=== PATIENT | male | born 1950 | race Caucasian/White ===

== ENCOUNTER 2020-08-31 09:01 | Day surgery (SDC) | payer MEDICARE, OTHER, SELFPAY ==
--- NOTE | 2020-08-24 14:25 | NURSING ---
pt reports he received his second Moderna Vaccine on 07/23/20.
[2020-08-31] VITALS (7 sets, daily range): BP systolic 120–171; BP diastolic 63–107; PULSE 55–85; RESP 16–18; TEMP 36.1–36.5; O2SAT 95–98; BMI 29.8
--- NOTE | 2020-08-31 09:10 | RAD_ITS ---
INDICATION: preop EXAMINATION/TECHNIQUE: X-RAY - XR Abdomen 1 View COMPARISON: None FINDINGS: BOWEL GAS PATTERN: Non-obstructive. No bowel or stomach distention. FREE AIR: Not assessed on a single supine view. ORGANOMEGALY: Not seen. CALCIFICATIONS: 8 mm stone projects over the mid left ureter. Few other calcifications in the pelvis may be phleboliths versus bladder stones. LOWER CHEST: No acute pathology. BONES AND SOFT TISSUES: No acute pathology. RAD/Abdomen Single View IMPRESSION: 8 mm stone projects over the mid left ureter. Few other calcifications in the pelvis may be phleboliths versus bladder stones. Electronically Signed: Tam Capellan MD at 23:08 EDT Tel , Service support ,
[2020-08-31] MEDS: Lactated Ringers 1,000 ML 100 ML IV (10:14)
--- NOTE | 2020-08-31 10:57 | PCM.HP.STD ---
Problem List (1) Left ureteral calculus Status: Acute History of Present Illness Date of Admission: 08/31/20 Chief Complaint: Left ureteral calculi The patient is a 70 year old male who presents with a stone in the mid ureter on the left side plan to proceed with shockwave lithotripsy possible stent Past Medical History Allergies No Known Allergies Allergy (Verified 08/24/20 13:46) Home Medications: Ambulatory Orders Medication Instructions Recorded Aspirin [Aspirin EC] 81 mg PO QHS 08/24/20 Atorvastatin Calcium [Lipitor] 40 mg PO QHS 08/24/20 Cholecalciferol (Vitamin D3) 2,000 unit PO QHS 08/24/20 [Thera-D] Lisinopril/Hydrochlorothiazide 1 each PO QHS 08/24/20 [Lisinopril-Hctz 10-12.5 mg Tab] Multivit-Min/FA/Lycopen/Lutein 1 each PO QHS 08/24/20 [Centrum Silver Men Tablet] [place]-3 Fatty Acids/Fish Oil [Fish 1 each PO QHS 08/24/20 Oil 1,000 mg Capsule] Tadalafil 20 mg PO . 08/24/20 Ubidecarenone [Coq10] 400 mg PO QHS 08/24/20 Surgical History: no surgical history Smoking Status: Former smoker Review of Systems Constitutional: Denies: Chills, Fever, Weight Change HEENT: Denies: Head Aches, Sinus Congestion, Sinus Drainage Cardiovascular: Denies: Chest Pain, Palpitations Respiratory: Denies: Cough, Shortness of breath at rest, Sputum production Gastrointestinal: Denies: Abdominal Pain, Nausea, Vomiting Genitourinary: Denies: Dysuria Musculoskeletal: Denies: Joint Pain, Joint Tenderness Skin: Denies: Rash, Wounds Neurological: Denies: Numbness, Tingling, Focal weakness Psychiatric: Denies: Anxiety, Depression, Homicidal Ideations, Suicidal Ideations Hematologic/ Lymphatic: Denies: Easy Bruising, Easy Bleeding VTE Information - Inpt Only VTE Present on Admission: No - Physical Exam Vitals/I&O's: Vital Signs Temp Pulse Resp BP Pulse Ox 97.5 F L 85 18 127/63 H 98 08/31/20 09:57 08/31/20 09:57 08/31/20 09:57 08/31/20 09:57 08/31/20 09:57 Oxygen Delivery Method Room Air Weight: 91.6 kg Body Mass Index (BMI) 29.8 General: Alert, Oriented x3, Cooperative HEENT: Atraumatic, PERRLA, EOMI, Normocephalic Neck: Supple, No JVD, Negative Carotid Bruits Lungs: Clear to auscultation, Normal air movement Cardiovascular: Regular rate, No murmurs Abdomen: Bowel Sounds Present, Soft, Non Tender Extremities: No edema, Capillary Refill Less than 3 Seconds Skin: No rashes, No breakdown Musculoskeletal: No Tenderness to Palpation of Joints or Extremities Neurological: Cranial nerves II-XII grossly intact Psych/Mental Status: Normal Affect, Appropriate Current Medications Cefazolin Sodium 2 gm/ Sodium (Chloride) 110 mls @ 150 mls/hr IV PREOP ONE Stop: 08/31/20 11:53 Lactated Ringer's () 1,000 mls @ 100 mls/hr IV .Q10H JUANITA Last Admin: 08/31/20 10:14 Dose: 100 mls/hr Documented by: Assessment/Plan All Active Problems Left ureteral calculus (Acute) Plan to proceed with left ESWL possible stent.
--- NOTE | 2020-08-31 11:00 | DCINST_ITS ---
Discharge Diet: Light diet - advance as tolerated Discharge Activity: Return to Normal Activity Allergies/Adverse Reactions: Allergies No Known Allergies Allergy (Verified 08/24/20 13:46) Medications to take at Discharge Aspirin [Aspirin EC] 81 mg PO QHS 08/24/20 Atorvastatin Calcium [Lipitor] 40 mg PO QHS 08/24/20 Cholecalciferol (Vitamin D3) [Thera-D] 2,000 unit PO QHS 08/24/20 Lisinopril/Hydrochlorothiazide [Lisinopril-Hctz 10-12.5 mg Tab] 1 each PO QHS 08/24/20 Multivit-Min/FA/Lycopen/Lutein [Centrum Silver Men Tablet] 1 each PO QHS 08/24/20 [place]-3 Fatty Acids/Fish Oil [Fish Oil 1,000 mg Capsule] 1 each PO QHS 08/24/20 Tadalafil 20 mg PO . 08/24/20 Ubidecarenone [Coq10] 400 mg PO QHS 08/24/20 Orders to be completed after discharge: Abdomen Single View [RAD] Time Frame: 08/31/20, Facility: [facility], Location: [facility] Primary Care Physician: Jose Pena MD [Primary Care Provider] - Test Results: Test results from this visit will be discussed in further detail at your follow- up appointment, if applicable. Please Follow Up With: Ken Cox MD When: please call to make an appointment.
[2020-08-31] MEDS: Cefazolin 2 GM in 0.9% Normal Saline 100 ML IV (11:05)
--- NOTE | 2020-08-31 11:51 | PCM.OPRPT ---
Problem List (1) Left ureteral calculus Status: Acute Report of Operation Date of Procedure: 08/31/20 Pre-Operative Diagnosis: Left ureteral calculi Post-Operative Diagnosis: same Surgery/Procedure Performed:: cystoscopy left stent placement left extracorporeal shockwave lithotripsy Description of Surgical Findings:: Patient presents to the hospital for treatment of a kidney stone with shockwave lithotripsy. In the preoperative area and x-ray was done to confirm the location of the stone. The x-ray was reviewed and the stone location was reviewed. In the preoperative setting I spoke with the patient regarding the treatment of the stone how the treatment would be conducted and the expectations after surgery. The patient understands there is a risk of bleeding and infection. Also discussed the very rare risk of hematoma or damage to the kidney. We also discussed the risk that the shockwave machine will fail to break the stone adequately and that the patient may need other surgical procedures. We also discussed the possibility that the patient may need a stent after the procedure. After reviewing the procedure with the patient, the patient is signed the consent form all the patient's questions were addressed and was taken back to the operating room for treatment of a kidney stone. Patient was taken back to the operating room, patient was identified by the nursing staff, we identified the side of the treatment and the patient side of treatment had been marked by my initials. The patient underwent general anesthetic and was placed supine on the lithotripter table. We then used fluoroscopy to identify the stone on the left side. We then positioned the patient under the lithotripter and we used triangulation technique to identify the location of the stone and then we made sure that the stone was engaged in the F2 focal point of F2 Donier lithoprior machine. The urethra and genitals were prepped and draped in usual sterile fashion. Using a 21 [place] rigid cystourethroscope the entire length of the urethra was normal then went into the bladder. Identified the trigone the left and right ureteral orifice. I then cannulated the left orifice and advanced a wire up into the kidney. I then backloaded a 5 [place] open ended catheter over the wire and injected contrast to delineate the anatomy. After the retrograde was performed I then used fluoroscopic images and guidance to advanced a wire up into the kidney and over the 0.038 glidewire I advanced a 6 [place] by 26 cm double pigtail stent. I then pulled the 0.038 Glidewire off and the stent coiled in the kidney bladder good position. The bladder was then drained. We confirmed the position of the stent by fluoroscopy.Once the patient was positioned appropriately and the stone was identified and placed in the F2 focal point of the lithotripter machine we then proceeded with shockwave lithotripsy. In the beginning the shockwave was delivered at a rate of 120 shocks per minute, we monitor the EKG for any ectopy. The power was slowly increased to 5 kV and subsequently at the 7 kV. We then proceeded with the treatment we move the therapy had around during the treatment to make sure the stone stayed in the F2 focal point during the entire treatment. Once the stone had broken up completely then we stopped the treatment a total of about 4000 shockwaves were delivered to the stone under fluoroscopic guidance. At this point the patient's anesthetic was reversed patient was extubated and taken back to the PACU in stable condition. The patient was given instructions to call the office to make an a follow-up appointment. Type of Anesthesia:: General Drains: stent left - Admit VTE Documentation VTE Present on Admission: No VTE Mechan Device Prophylaxis: SCD's
[2020-08-31] MEDS: Ondansetron 4 MG/2 ML Vial IV (12:38)
[2020-08-31] MEDS: Ketorolac 15 MG/ML Vial IV (12:38)
== END 2020-08-31 14:11 | disposition home or self-care (01) ==
LOC: SDC 09:03 → AC 09:05
PROVIDERS: PCP Family Medicine; Referring Provider Urology; Visit Provider Urology
PROC: (CPT 50590; principal; 2020-08-31 11:00)
DX: N20.1 Calculus of ureter (principal); I10 Essential (primary) hypertension; E78.00 Pure hypercholesterolemia, unspecified; Z79.82 Long term (current) use of aspirin; Z79.899 Other long term (current) drug therapy; Z87.442 Personal history of urinary calculi; Z87.891 Personal history of nicotine dependence; Z95.1 Presence of aortocoronary bypass graft
CPT/HCPCS: 00873; 50590; 52332; 74018; J7120; C1769; C2617; J2405

== ENCOUNTER → 2020-09-03 14:21 | Outpatient (CLI) | payer MEDICARE, OTHER, SELFPAY ==
[2020-08-31 09:57] VITALS: BMI 29.8
--- NOTE | 2020-09-03 14:26 | RAD_ITS ---
STUDY: X-RAY - ABDOMEN/PELVIS REASON FOR EXAM: Male, 70 years old. post op after ESWL TECHNIQUE: Single AP view of the abdomen / pelvis. COMPARISON: None. FINDINGS: Normal visualized lung bases. There is an unremarkable bowel gas pattern. Left ureteral stent. 6 mm calcific opacity adjacent to the stent at the level of L4/L5 worrisome for ureteral stone. Normal soft tissue structures. Normal visualized osseous structures. RAD/Abdomen Single View IMPRESSION: Left ureteral stent with suspected 6 mm left ureteral stone in the mid left ureter. Electronically Signed: Tucker Weiner MD at 13:13 EDT Tel , Service support ,
== END ==
PROVIDERS: PCP Family Medicine; Referring Provider Urology; Visit Provider Urology
DX: Z98.890 Other specified postprocedural states (principal)
CPT/HCPCS: 74018

== ENCOUNTER 2020-09-05 12:11 | Day surgery (SDC) | payer MEDICARE, OTHER, SELFPAY ==
[2020-08-31 09:57] VITALS: BMI 29.8
[2020-09-05] VITALS (7 sets, daily range): BP systolic 129–155; BP diastolic 60–72; PULSE 55–67; RESP 16; TEMP 36.2–36.9; O2SAT 16–100; BMI 29.6
[2020-09-05] MEDS: Lactated Ringers 1,000 ML 100 ML IV (12:53)
--- NOTE | 2020-09-05 14:19 | PCM.HP.STD ---
HPI - General General Date of Admission: 08/31/20 HPI Narrative YADIRA AVILES, is a 70 M who presentsWho is status post treatment of the left ureteral calculi with shockwave lithotripsy. I saw him in the postoperative period in my office with an x-ray and he still has a large fragment in the ureter so we will bring him back to surgery for ureteroscopy and laser of a large fragment that did not break with shockwave lithotripsy he understands he may need another stent. [facility] Medical History (Updated 09/04/20 @ 13:07 by Katy Henriquez) Heartburn History of tinnitus Hx of cardiovascular stress test (~08/25/18) Hx of echocardiogram (~2011) Hx of renal calculi Hypertension Injury of head and neck Kidney stones Shortness of breath on exertion Home Medications aspirin 81 mg PO QHS 08/24/20 [History Last Taken 09/02/20] atorvastatin 40 mg PO QHS 08/24/20 [History Last Taken Unknown] cholecalciferol (vitamin D3) 2,000 unit PO QHS 08/24/20 [History Last Taken Unknown] coenzyme Q10 400 mg PO QHS 08/24/20 [History Last Taken Unknown] lisinopril-hydrochlorothiazide 1 each PO QHS 08/24/20 [History Last Taken Unknown] wdgnunud-qdt-ZC-lycopen-lutein 1 each PO QHS 08/24/20 [History Last Taken Unknown] omega-3 fatty acids-fish oil 1 each PO QHS 08/24/20 [History Last Taken Unknown] tadalafil (pulm. hypertension) 20 mg PO . 08/24/20 [History Last Taken Unknown] hydrocodone-acetaminophen 1 tablet PO Q4H PRN PRN 7 Days #14 tab 08/31/20 [Rx Last Taken Unknown] oxybutynin chloride 10 mg PO DAILY 09/04/20 [History Last Taken Unknown] cephalexin [Keflex] 750 mg PO TID #15 cap 09/05/20 [Rx Last Taken Unknown] ibuprofen 600 mg PO Q6H PRN #20 tab 09/05/20 [Rx Last Taken Unknown] Allergy/AdvReac Type Severity Reaction Status Date / Time No Known Allergies Allergy Verified 09/05/20 12:44 Surgical History (Updated 09/04/20 @ 13:00 by Katy Henriquez) Hx of CABG (~06/15/12) Hx of cardiac cath (~06/15/12) Hx of carotid angioplasty Hx of lithotripsy (~08/31/20) Social History Smoking Status: Former smoker Vital Signs Vital Signs Vital Signs: 09/05/20 12:46 Temperature 98.5 F Temperature Source Temporal Pulse Rate 65 Respiratory Rate 16 Respiratory Pattern Normal Blood Pressure 152/68 H Blood Pressure Mean 96 Blood Pressure Source Monitor Blood Pressure Position Semi-Fowlers Blood Pressure Location Right Arm Pulse Ox 98 Oxygen Delivery Method Room Air Physical Exam Const alert and oriented x3 General Appearance: cooperative HEENT normocephalic, head/scalp atraumatic, EAC's normal and TM's normal bilaterally Eyes PERRL and EOMs intact bilaterally Pupil: sluggish Neck no lymphadenopathy, supple and no JVD General: trachea midline Lymph Lymphatic: no lymphadenopathy noted, lymphedema and lymphadenopathy Resp normal respiratory effort, normal air movement and clear to auscultation bilaterally Cardio regular rate, regular rhythm and peripheral pulses 2+ throughout GI soft to palpation, non-tender and non-distended Extremity normal capillary refill and no clubbing, cyanosis or edema General Extremity: no tenderness to palpation of joints or extremities Skin no rashes or lesions noted General Skin Exam: turgor normal Lesions: no lesions Rashes: no rashes Neuro CN's II-XII intact bilaterally Speech: speech normal Motor Exam: strength 5/5 throughout; Negative for general weakness Psych thought process normal, cooperative and affect normal Appearance: appropriate Assessment & Plan Assessment/Plan (1) Left ureteral calculus: Status: Acute Code(s): N20.1 - Calculus of ureter Plan: None plan to proceed with second stage surgery stage related to the prior surgery with left ureteroscopy laser of a stone that did not break with shockwave lithotripsy and possible left stent placement.
--- NOTE | 2020-09-05 14:20 | PCM.DC ---
Discharge Instructions Outpatient Procedure Procedure: Urology Diet Discharge Diet: No restrictions Activity Discharge Activity: May not drive while taking narcotic pain medications. (for 3 days.) May shower in (days): 1 Dressing / Incision Call your doctor if you observe: Fever of 101 or Higher, Numbness or Tingling, Shortness of breath, Dizziness, Calf discomfort and Uncontrolled pain Follow Up Care Please Follow Up With: Ken Cox MD When: Call [phone] for an appointment Test Results: Test results from this visit will be discussed in further detail at your follow-up appointment, if applicable. Discharge Plan Admission Attending Provider: Ken Cox Primary Care Provider: Jose Pena Instructions Patient Instructions: ED Kidney Stone, Passed Discharge Orders/Prescriptions Prescriptions: New cephalexin [Keflex] 750 mg capsule 750 mg PO TID Qty: 15 RF: 0 ibuprofen 600 mg tablet 600 mg PO Q6H PRN (Reason: pain) Qty: 20 RF: 0 No Action atorvastatin 40 MG tablet 40 mg PO QHS RF: 0 aspirin 81 MG tablet,delayed release (DR/EC) 81 mg PO QHS RF: 0 lisinopril-hydrochlorothiazide 1 EACH tablet 1 each PO QHS RF: 0 omega-3 fatty acids-fish oil 1 EACH capsule 1 each PO QHS RF: 0 cholecalciferol (vitamin D3) 50 MCG tablet 2,000 unit PO QHS RF: 0 hqrnyjcz-ube-JO-lycopen-lutein 1 EACH tablet 1 each PO QHS RF: 0 coenzyme Q10 50 MG tablet,chewable 400 mg PO QHS RF: 0 tadalafil (pulm. hypertension) 20 MG tablet 20 mg PO . RF: 0 hydrocodone-acetaminophen 1 TABLET tablet 1 tablet PO Q4H PRN PRN (Reason: Pain) 7 Days Qty: 14 RF: 0 oxybutynin chloride 10 mg Tablet Extended Release 24hr 10 mg PO DAILY RF: 0 Referrals: Jose Pena MD [Primary Care Provider] - Disposition Discharge Orders: Discharge Patient (Routine); Ordered 09/05/20 Ordered By: Dr. Ken Cox
[2020-09-05] MEDS: Cefazolin 2 GM in 0.9% Normal Saline 100 ML IV (14:39)
[2020-09-05] MEDS: Lubricating Jelly 60 GM Tube 30 GM TOPICAL (14:52)
--- NOTE | 2020-09-05 15:13 | PCM.OPRPT ---
Problems Associated Problem List Diagnoses (1) Left ureteral calculus: Report of Operation Date of Procedure: 09/05/20 Pre-Operative Diagnosis: Status post left ESWL well for left ureteral calculus Post-Operative Diagnosis: Same Surgery/Procedure Performed:: Stage related procedure, left ureteroscopy laser lithotripsy of stone and ureter, left retrograde pyelogram and left stent placement. Description of Surgical Findings:: Surgeon Dr. Cox Patient was taken back to the operating room after smooth induction of general anesthesia the urethra penis were prepped and draped in usual sterile fashion, I grabbed the string on the existing stent pulled out the meatus and put a wire through the stent and then over the wire went in with a flexible ureteroscope I was able to go up to the stone which had been previously treated the area was severely inflamed and the stone was stuck in the ureter there was a small puncture in the side of the ureter as well, I then used a 200 ?m laser fiber and laser the stone little tiny pieces after successful lasering of the stone all the pieces floated up into the kidney other little tiny fragments were all lasered a little tiny pieces. But because of the severe inflammation along the ureter and I was also small puncture defect from the stone itself decided that a stent would be necessary to allow this to heal completely. I backloaded down the ureter performed a retrograde pyelogram and then place a stent on the left side. The stent coiled in the kidney bladder good position. The bladder was drained patient anesthetic was reversed to take back to PACU good condition. Type of Anesthesia: General Anesthesiologist: Jassi Regan Drains: 6 x 26 cm stent Complications None Admit VTE Documentation VTE Present on Admission: No VTE Mechan Device Prophylaxis: SCD's
[2020-09-05] MEDS: Ketorolac 15 MG/ML Vial IV (16:31)
== END 2020-09-05 17:15 | disposition home or self-care (01) ==
LOC: SDC 12:14 → AC 12:24
PROVIDERS: PCP Family Medicine; Referring Provider Urology; Visit Provider Urology
PROC: 0TJ98ZZ Inspection of Ureter, Via Natural or Artificial Opening Endoscopic (ICD-10-PCS; CPT 52352; principal; 2020-09-05 14:20)
DX: N20.1 Calculus of ureter (principal); I10 Essential (primary) hypertension; Z79.82 Long term (current) use of aspirin; Z79.899 Other long term (current) drug therapy; Z87.891 Personal history of nicotine dependence; Z87.442 Personal history of urinary calculi; Z95.1 Presence of aortocoronary bypass graft; Z98.890 Other specified postprocedural states
CPT/HCPCS: 00918; 52356; 76000; J7120; C1769; C2617; J2405

== ENCOUNTER → 2021-11-05 | Outpatient (CLI) | payer MEDICARE, OTHER, SELFPAY ==
--- NOTE | 2021-11-05 15:06 | RAD_ITS ---
EXAM: XR ABDOMEN, 1 VIEW CLINICAL INDICATION: BENIGN PROSTATIC HYPERPLASIA TECHNIQUE: Frontal supine view of the abdomen/pelvis. This report was created using Nugg-it report generation technology. COMPARISON: 09/03/2020 FINDINGS: LOWER THORAX: No acute pathology. GASTROINTESTINAL TRACT: Unremarkable. Non-obstructive. No bowel or stomach distention. ORGANS: Unremarkable as visualized. No organomegaly. No abnormal calcifications. BONES/JOINTS: No acute pathology. SOFT TISSUES: No acute pathology. RAD/Abdomen Single View IMPRESSION: Non-obstructive bowel gas pattern. Electronically Signed: Davide Stephen MD at 2:35 EDT ,
== END | disposition home or self-care (01) ==
LOC: RAD 15:02
PROVIDERS: PCP Family Medicine; Referring Provider Urology; Visit Provider Urology
DX: N40.1 Benign prostatic hyperplasia with lower urinary tract symptoms (principal); N20.0 Calculus of kidney
CPT/HCPCS: 74018

== ENCOUNTER → 2023-05-06 | Outpatient (CLI) | payer OTHER, SELFPAY ==
--- NOTE | 2023-05-06 16:07 | CT_ITS ---
INDICATION: MASS EXAMINATION: CT NECK WITH CONTRAST - CT Soft Tissue Neck W/ Contrast Injection TECHNIQUE: Helically acquired images were obtained of the neck following IV contrast. A radiation dose optimization technique was used for this scan. IV Contrast dosage and agent: 75 cc of Isovue-370. RADIATION DOSAGE (If Supplied By Facility): CTDIvol = ( 18.41 ) mGy, DLP = ( 588.82 ) mGycm COMPARISON: No relevant prior comparison study available FINDINGS: NASOPHARYNX: Unremarkable. SUPRAHYOID NECK: Unremarkable oropharynx, oral cavity, parapharyngeal space, and retropharyngeal space. INFRAHYOID NECK: Unremarkable larynx, hypopharynx, and supraglottis. The left piriform sinus ovary is not visualized. No definite mass is seen. THYROID: No focal lesions. SALIVARY GLANDS: Unremarkable. LYMPH NODES: Few subcentimeter nodes in the carotid spaces bilaterally. No evidence of adenopathy. VASCULAR STRUCTURES: Scattered atherosclerotic calcifications in the distal left common and proximal left internal carotid arteries without significant stenosis. VISUALIZED PORTIONS OF THE ORBITS, PARANASAL SINUSES, MASTOID AIR CELLS AND SKULL BASE: Unremarkable. BONES: Degenerative changes in the lower cervical spine. THORACIC INLET: Clear lung apices. CT/Soft Tissue Neck WITH Contrast IMPRESSION: 1. No mass is seen. 2. Essentially unremarkable airway as described above. Electronically Signed: Ulices Hutchison MD at 15:14 EST ,
[2023-05-06 16:35] LABS: CREATININE FINGERSTICK 1.2 mg/dL (0.70-1.30)
== END | disposition home or self-care (01) ==
PROVIDERS: PCP Family Medicine
DX: R22.1 Localized swelling, mass and lump, neck (principal); R22.2 Localized swelling, mass and lump, trunk
CPT/HCPCS: 70491; Q9967

== ENCOUNTER → 2024-12-02 | Outpatient (CLI) | payer OTHER, SELFPAY ==
--- NOTE | 2024-12-02 10:04 | MRI_ITS ---
PROCEDURE: LOWER EXT JOINT ONLY (ROUTINE) 12/02/2024 REASON FOR EXAM: LT KNEE, ASSESS FOR MENISCUS TEAR TECHNIQUE: T1, T2, LOWER EXT JOINT ONLY (ROUTINE) Multiplanar and multisequence images were obtained without IV contrast administration. 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 There is moderate osteoarthritis at the lateral compartment there is a 1.0 x 1.0 cm intraosseous ganglion deep to the root of the medial meniscus. Cruciate ligaments: There is a edema and attenuation throughout the anterior cruciate ligament with lax components, grade 2-3 sprain. There is a edema and attenuation in the proximal 2/3 of the posterior cruciate ligament without laxity, grade 2 sprain. Collateral ligaments: There is a edema, thickening and attenuation in the medial collateral ligament, grade 2 sprain. The lateral collateral ligament complex appears intact. Menisci: There is a radial tear in the posterior horn of the medial meniscus with a complex tear in the body, with extrusion. There is a vertical tear in the posterior horn of the lateral meniscus, coronal image 23/34. Effusion: There is a moderate joint effusion. Plica are noted in the superior joint space. There is a 0.6 x 0.3 cm Lea's cyst. 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 There is moderate osteoarthritis at the lateral compartment there is a 1.0 x 1. 0 cm intraosseous ganglion deep to the root of the medial meniscus. There is a edema and attenuation throughout the anterior cruciate ligament with lax components, grade 2-3 sprain. There is a edema and attenuation in the proximal 2/3 of the posterior cruciate ligament without laxity, grade 2 sprain. There is a edema, thickening and attenuation in the medial collateral ligament, grade 2 sprain. There is a radial tear in the posterior horn of the medial meniscus with a comp anh tear in the body, with extrusion. There is a vertical tear in the posterior horn of the lateral meniscus, coronal image 23/34. There is a moderate joint effusion. Plica are noted in the superior joint space. There is a 0.6 x 0.3 cm Lea's cyst. Reading [facility]
== END | disposition home or self-care (01) ==
LOC: MRI 09:58
PROVIDERS: PCP Family Medicine
DX: M17.12 Unilateral primary osteoarthritis, left knee (principal); Z96.652 Presence of left artificial knee joint; Z95.5 Presence of coronary angioplasty implant and graft; I10 Essential (primary) hypertension
CPT/HCPCS: 73721